=== PATIENT | female | born 1935 | race Caucasian/White ===

== ENCOUNTER 2020-05-13 07:56 | Day surgery (SDC) | payer MEDICARE, OTHER ==
[~2020-05-13] VITALS: Ht 162.6 cm; Wt 81.4 kg
[2020-05-13 08:31] LABS: BASOPHILS 0.2 % (0-2); EOSINOPHILS 0.5 % (0-7); HEMATOCRIT 42.1 % (36.0-48.0); HEMOGLOBIN 13.7 g/dL (12-16); IMMATURE GRANULOCYTES 0.4 % (0-5); LYMPHOCYTES 31.2 % (15-50); MCHC 32.5 g/dL (31.0-37.0); MCV 98.4 fL (80.0-100.0); MEAN PLATELET VOLUME 11.5 fL (7.4-10.4); MONOCYTES 11.9 % (2-11); NEUTROPHILS 55.8 % (40-80); PLATELET COUNT 219 10x3/uL (130-400); RBC 4.28 10x6/uL (4.00-5.40); RDW 13.1 % (11.5-14.5); WBC 5.7 10x3/uL (4.8-10.8)
[2020-05-13 08:38] LABS: CALCIUM 9.2 mg/dL (8.5-10.1); CARBON DIOXIDE 30.1 mmol/L (21.0-32.0); POTASSIUM - SERUM 4.1 mmol/L (3.5-5.1)
[2020-05-13] MEDS ORDERED: COREG 3.1253.125 MG PO (09:09)
[2020-05-13] MEDS ORDERED: LIPITOR20 MG PO (09:09)
[2020-05-13] MEDS ORDERED: BACLOFEN10 MG PO (09:09)
[2020-05-13] MEDS ORDERED: AGGRENOX 200/251 CAP PO (09:09)
[2020-05-13] MEDS ORDERED: VOLTAREN75 MG PO (09:10)
[2020-05-13] MEDS ORDERED: KLONOPIN1 MG PO (09:10)
[2020-05-13] MEDS ORDERED: LASIX20 MG PO (09:10)
[2020-05-13] MEDS ORDERED: PROPECIA1 MG PO (09:10)
[2020-05-13] MEDS ORDERED: ALDACTONE25 MG PO (09:11)
[2020-05-13] MEDS ORDERED: COZAAR25 MG PO (09:11)
[2020-05-13] MEDS ORDERED: SYNTHROID50 MCG PO (09:11)
[2020-05-13] MEDS ORDERED: OMEPRAZOLE40 MG PO (09:11)
[2020-05-13] MEDS ORDERED: ISOSORBIDE MONO30 M1 PO (09:11)
[2020-05-13] MEDS ORDERED: CARAFATE1 G PO (09:12)
[2020-05-13 09:27] VITALS: BP 134/73; Ht 162.6 cm; Wt 81.4 kg
[2020-05-13] MEDS ORDERED: HYDROCODON-ACE1 EAC7 PO (09:39)
[2020-05-13] MEDS ORDERED: ROPINIROLE HCL2 MG PO (09:39)
[2020-05-13] MEDS ORDERED: DULERA 100 MCG8.8 GM INH (09:40)
--- NOTE | 2020-05-13 10:17 | NUR ---
1005-RECD TO ROOM FROM GI LAB. ALERT. RESP WITH EASE. AT BEDSIDE. 1010- VOSANDIE IN TO REPORT FINDINGS.
--- NOTE | 2020-05-13 10:42 | NUR ---
1035-D/C HOME VIA WHEELCHAIR WITH SPOUSE.
--- NOTE | 2020-05-13 13:32 | OP ---
PATIENT NAME: WENDI DOLL MEDICAL RECORD: [id number] :37 LOCATION:[facility] ADMISSION DATE: SURGEON: MEME MARTÍNEZ DO DATE OF OPERATION: 05/13/2020 PROCEDURE: EGD with biopsies. INDICATIONS FOR PROCEDURE: Heartburn with a history of hiatal hernia and Jann fundoplication in March of 2019. SCOPE: Olympus video gastroscope. MEDICATIONS: Propofol 120 mg IV per anesthesia. ESTIMATED BLOOD LOSS: Minimal. COMPLICATIONS: None. FINDINGS AND DESCRIPTION OF PROCEDURE: Informed consent was given. The patient was made comfortable with the above medication. After reaching an adequate level of sedation by slow IV push, the patient was placed on her left side. The endoscope was advanced under direct visualization through the mouth, to the second portion of the duodenum with ease. The esophagus appeared normal down to the GE junction. At the GE junction, there were minor changes consistent with LA class A reflux-induced esophagitis. Cold forceps biopsies were taken at the squamocolumnar junction to rule out the presence of Burgos's esophagus. The endoscope was advanced beyond the GE junction into the stomach and retroflexed to view the cardia where there was evidence of a prior fundoplication. The fundoplication itself was loose and does not appear to be fully intact. The fundus of the stomach appeared normal. Throughout the body as well as the antrum and prepyloric regions, there was some erythema and granularity consistent with very mild chronic gastritis. Cold forceps biopsies were taken from the antrum and incisura to submit for histopathology and to rule out the presence of H. pylori. The endoscope was advanced beyond the pylorus into the duodenum, which appeared normal to the second portion. Cold forceps biopsies were taken to submit for histopathology. The endoscope was withdrawn from the patient. The patient tolerated the procedure well and there were no complications. IMPRESSION: 1. LA class A reflux-induced esophagitis. 2. A small sliding hiatal hernia was present with evidence of a prior Jann fundoplication. 3. Mild chronic gastritis changes. PLAN AND RECOMMENDATIONS: 1. Discharge home when recovery parameters are met. 2. Follow up biopsy specimen results. 3. GERD diet and reflux precautions. 4. Okay to stop Carafate. 5. Continue proton pump inhibitor for now. Can consider switching to Pepcid/famotidine in the near future if symptoms remain well controlled. 6. Notify the GI clinic if symptoms worsen or fail to improve further. TRANSINT:[id number] Voice Confirmation ID: [id number] DOCUMENT ID: [id number] OPERATIVE REPORT [id number] WENDI DOLL NATHAN A DO at 1332 CC: [id number] DICTATION DATE: 05/13/20 1005 SET DESIGNER: 05/13/20 1306 [facility] 05/13/20 [place] [id number]
== END 2020-05-13 10:35 | disposition home or self-care (01) ==
LOC: D.OPS 07:56
PROVIDERS: Anesthesiology; ATTEND Internal Medicine Gastroenterology
DX: R12 Heartburn (principal); J45.909 Unspecified asthma, uncomplicated; Z86.73 Personal history of transient ischemic attack (TIA), and cerebral infarction without residual deficits; K21.9 Gastro-esophageal reflux disease without esophagitis